=== PATIENT | male | born 1990 | race Caucasian/White ===

== ENCOUNTER 2025-05-01 08:38 | Emergency (ER) | payer BC, SELFPAY ==
[2025-05-01 08:41] VITALS: BP 166/97
--- NOTE | 2025-05-01 10:26 | ED.GENMED ---
History of Present Illness
General
Chief Complaint: Headache
Time Seen by Provider: 05/01/25 09:41
History of Present Illness
History of Present Illness:
35-year-old male with known history of prolactinoma presents to the emergency department for evaluation of intractable headaches for the past several days. Reports a constant low-level headache with frequent worsening of pain described as sharp,
rated to the left occiput to the forehead. Does not take patient's pain control. Discussed photophobia but denies vomiting, fever, or neck pain. No Diplopia.
Past History
Past History
ED Past Medical History: Other (pituitary adnemoma)
ED Past Surgical History: None
Social History
Tobacco: Non-smoker
Alcohol: None
Drug: None
Personal: Single
Review of Systems
Review of Systems
Allergies reviewed?: Yes
All Other Systems: ROS reviewed and negative except as documented in HPI and ROS
Phy Exam
Physical Exam
Physical Exam:
GEN: Well appearing, NAD, WDWN
HEENT: Oral mucosa moist, no scleral icterus, no nasal congestion. No palpable abnormalities or rashes to the posterior scalp patient pain increases with pressure along the greater occipital nerve distribution
Cardiac: Regular rate
Lung: No respiratory distress, no tachypnea
MSK: No gross deformity or injuries
Skin: Good color, no pallor or jaundice, no rashes
Neuro: AO x3; CN II-XII grossly intact. BUE strength 5/5 in all monaco, sensation intact and symmetric. BLE strength 5/5 in all monaco, sensation intact and symmetric
Psych: Calm, cooperative
Course
Orders/Labs/Results
Orders:
Orders
05/01/25 10:09
CT Head W/o Iv Contrast Urgent
Comment:
Reason For Exam: headache
Ketorolac [Toradol] 30 mg IM NOW STA
Vital Signs
Initial and Last Documented VS:
Initial Vital Signs
Temp Pulse Resp BP Pulse Ox
98.0 F 79 16 166/97 98
05/01/25 08:41 05/01/25 08:41 05/01/25 08:41 05/01/25 08:41 05/01/25 08:41
Last Documented Vital Signs
Temp Pulse Resp BP Pulse Ox
98.0 F 79 16 166/97 98
05/01/25 08:41 05/01/25 08:41 05/01/25 08:41 05/01/25 08:41 05/01/25 10:27
MDM/Problems Addressed
MDM/Problems Addressed:
CT was obtained to evaluate for intracranial mass which did not show any stable appearing pituitary adenoma, this is not likely related to his symptoms whatsoever. Suspect occipital neuralgia given frequent bouts of increased pain. He was given a
lesser occipital nerve block in addition to IM Toradol and reported improvement in symptoms. Stable for discharge home, recommend primary care follow-up as an outpatient
*Pulse Oximetry
SaO2: 98
Oxygen Mode of Delivery: Room air
Patient hypoxic: no
*Critical Care Note
Total Time (30-74mins, 75-104mins- exclusive of procedures): Not Applicable
ED Attending Note
-
Portions of this chart may have been created with voice recognition software.� Occasional wrong word or��sound alike� substitutions may have occurred due to the inherent limitations of voice recognition software.
Discharge Plan
Departure
Patient Disposition: Home (Routine Discharge)
Date of Disposition: 05/01/25
Time of Disposition: 11:37
Patient with high blood pressure during this ER visit?: No
Discharge Problem:
Occipital neuralgia
Instructions: Headache, Adult (DC)
Prescriptions:
New
xankjqbpds-qqcvgceybwvxd-cfnc [Fioricet] 50-300-40 mg capsule
1 cap PO Q8H PRN (Reason: Pain) Qty: 10 0RF
Referrals:
Yazmin Holliday DO [Family Provider, Family Practice]
Interventions
Interventions:
*Risk Screen - Suicide Last Done: 05/01/25 08:41
*General Assessment Last Done: 05/01/25 10:35
*Neglect/Abuse Screening Last Done: 05/01/25 08:41
*ED- Fall Risk Assessment Last Done: 05/01/25 10:35
*ED COVID-19 Vaccine History Last Done: 05/01/25 10:35
*ED Influenza Vaccine History Last Done: 05/01/25 10:35
*Nursing Disposition Last Done: 05/01/25 11:40
ED- Neurological Assessment Last Done: 05/01/25 10:35
Discharge Date and Time
Discharge Date/Time: 05/01/25 11:40
Print Language: PALAUAN
[2025-05-01] MEDS: TORADOL 30 MG IM (10:28)
== END 2025-05-01 11:40 | disposition home or self-care (01) ==
LOC: EMR 08:38
PROVIDERS: EMERGENCY PHYSICIAN Emergency Medicine; FAMILY PHYSICIAN Family Medicine
DX: M54.81 Occipital neuralgia (principal); Z86.018 Personal history of other benign neoplasm
CPT/HCPCS: 99284; 96372; 70450

== ENCOUNTER 2025-05-02 07:22 | Emergency (ER) | payer BC, SELFPAY ==
[2025-05-02] VITALS (8 sets, daily range): BP systolic 125–146; BP diastolic 74–100; BMI 33.2
--- NOTE | 2025-05-02 08:13 | ED.GENMED ---
History of Present Illness
<Lee Rocha MD, Resident - Last Filed: 05/02/25 09:12>
General
Chief Complaint: Headache
Source: patient
Time Seen by Provider: 05/02/25 07:33
History of Present Illness
History of Present Illness:
Patient is a 35-year-old male with PMH of pituitary tumor and ADHD who presented to the [facility] ED for headache. Patient presented to the [facility] ED for the same complaint yesterday. He underwent a CT head, which showed a known pituitary
mass. The patient's headache improved with the submental nerve block and IM Toradol. Patient was discharged with Fioricet. After discharge around 12 PM yesterday, the patient has had a relief until approximately 4 PM. Patient took Fioricet 3
times between 6 PM and 5 AM. The medication initially somewhat relieved the headache, but the headache substantially increased in severity around 3 AM this morning. Due to the severity and persistence of the headache, patient returned to the ED.
The headaches initially started last Monday (04/23) upon waking up in the morning. Headaches are intermittent, 9�10 dull intensity with intermittent '11/10' stabbing pain, and localized left side, particularly left occiput. They are interfering
with the patient's sleep, preventing him from sleeping more than 1-2 hours at a time. Patient takes cabergoline and hydrocortisone for his pituitary tumor. He has also used a testosterone cream for 2 years to increase his levels. Patient has had
several MRIs in the past related to his pituitary tumor, with a CT scan yesterday indicating it is decreased in size based on the patient's self-reported baseline 1 diagnosis of approximately 4.5 cm. Most recent MRI was over a year ago, when the
pituitary tumor was a little over 3 cm. No personal history of severe headaches. No recent trauma. Patient uses vapes. No cigarette smoking, alcohol use, or drug use. Patient occasionally sees some floaters with the headaches, otherwise no
visual changes. Patient has occasionally had poor balance and dropped items from his hands since the headaches started, but the patient thinks this is from the distracting pain rather than a primary balance issue or weakness. 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 No neck pain, dysarthria, sensation changes, N/V/D, fever, or chills.
Past History
<Lee Rocha MD, Resident - Last Filed: 05/02/25 09:12>
Past History
ED Past Medical History: Psychiatric (ADHD) and Other (pituitary adenoma)
ED Past Surgical History: None
Social History
Tobacco: Vaping
Alcohol: None
Drug: None
Personal: Single
Review of Systems
<Lee Rocha MD, Resident - Last Filed: 05/02/25 09:12>
Review of Systems
Constitutional: Reports fatigue (Related to decreased sleep due to headache) and sleep disturbance; Denies fever or chills
Respiratory: Denies trouble breathing
Cardiac: Denies chest pain
ABD/GI: Denies abdominal pain, nausea, vomiting or diarrhea
Musculoskeletal: Denies neck pain
Neurological: Reports headache; Denies weakness or numbness
Phy Exam
<Lee Rocha MD, Resident - Last Filed: 05/02/25 09:12>
Physical Exam
Physical Exam:
General: Moderate distress. Conversant, though this is difficult due to the headache.
Neuro: A&O x 3. Motor, sensory intact in all extremities. CN II through XII grossly intact. No pain with neck flexion, extension, or side flexion.
MSK: TTP left occiput. No cyanosis or edema.
Course
<Lee Rocha MD, Resident - Last Filed: 05/02/25 09:12>
Orders/Labs/Results
Orders:
Orders
05/02/25 08:12
Prochlorperazine [Compazine] 10 mg IV NOW STA
05/02/25 08:19
NEUROLOGY CONSULT Urgent
Consulting Provider: Christian Reyes
Was physician already notified: Yes
05/02/25 08:42
MRI Brain [MR Brain W/o & With Contrast] Urgent
Comment:
Reason For Exam: headache pit tumor, concern for apoplexy
OK for patient to be off Cardiac Monitoring for MRI: Yes
Recent pill cam endoscopy?: No
05/02/25 08:49
HYDROmorphone [Dilaudid] 1 mg IV NOW STA
05/02/25 08:50
CBC/With ESR Urgent
Comprehensive Metabolic Panel Urgent
Prolactin Routine
Comment: May add to blood in lab or draw as routine
05/02/25 11:00
HYDROmorphone [Dilaudid] 1 mg IV NOW STA
Ondansetron Injectable [Zofran] 4 mg IV NOW STA
Abnormal Lab Results
05/02/25
08:50
WBC 12.2 H 10^3/uL
(4.8-10.8)
Abs Immat Gran (auto) 0.1 H 10^3/uL
(0-0.05)
Absolute Neuts (auto) 8.3 H 10^3/uL
(1.4-6.5)
Absolute Monos (auto) 0.8 H 10^3/uL
(0.1-0.6)
Sodium 133 L mmol/L
(135-145)
Glucose 102 H mg/dl
(70-99)
Total Protein 8.3 H g/dl
(6.3-8.2)
05/02/25 08:50
05/02/25 08:50
Vital Signs
Initial and Last Documented VS:
Initial Vital Signs
Temp Pulse Resp BP Pulse Ox
98.3 F 76 16 125/74 96
05/02/25 07:27 05/02/25 07:27 05/02/25 07:27 05/02/25 07:27 05/02/25 07:27
Last Documented Vital Signs
Temp Pulse Resp BP Pulse Ox
98.3 F 72 20 146/100 96
05/02/25 07:27 05/02/25 08:48 05/02/25 08:48 05/02/25 09:00 05/02/25 09:30
<Zain Barney, DO - Last Filed: 05/02/25 12:45>
Orders/Labs/Results
Orders:
Orders
05/02/25 08:12
Prochlorperazine [Compazine] 10 mg IV NOW STA
05/02/25 08:19
NEUROLOGY CONSULT Urgent
Consulting Provider: Christian Reyes
Was physician already notified: Yes
05/02/25 08:42
MRI Brain [MR Brain W/o & With Contrast] Urgent
Comment:
Reason For Exam: headache pit tumor, concern for apoplexy
OK for patient to be off Cardiac Monitoring for MRI: Yes
Recent pill cam endoscopy?: No
05/02/25 08:49
HYDROmorphone [Dilaudid] 1 mg IV NOW STA
05/02/25 08:50
CBC/With ESR Urgent
Comprehensive Metabolic Panel Urgent
Prolactin Routine
Comment: May add to blood in lab or draw as routine
05/02/25 11:00
HYDROmorphone [Dilaudid] 1 mg IV NOW STA
Ondansetron Injectable [Zofran] 4 mg IV NOW STA
Abnormal Lab Results
05/02/25
08:50
WBC 12.2 H 10^3/uL
(4.8-10.8)
Abs Immat Gran (auto) 0.1 H 10^3/uL
(0-0.05)
Absolute Neuts (auto) 8.3 H 10^3/uL
(1.4-6.5)
Absolute Monos (auto) 0.8 H 10^3/uL
(0.1-0.6)
Sodium 133 L mmol/L
(135-145)
Glucose 102 H mg/dl
(70-99)
Total Protein 8.3 H g/dl
(6.3-8.2)
05/02/25 08:50
05/02/25 08:50
Vital Signs
Initial and Last Documented VS:
Initial Vital Signs
Temp Pulse Resp BP Pulse Ox
98.3 F 76 16 125/74 96
05/02/25 07:27 05/02/25 07:27 05/02/25 07:27 05/02/25 07:27 05/02/25 07:27
Last Documented Vital Signs
Temp Pulse Resp BP Pulse Ox
98.3 F 72 20 146/100 96
05/02/25 07:27 05/02/25 08:48 05/02/25 08:48 05/02/25 09:00 05/02/25 09:30
<Lee Rocha MD, Resident - Last Filed: 05/02/25 09:12>
MDM/Problems Addressed
Differential Diagnosis Includes:
Occipital neuralgia
Cluster headache
Tension headache
Stroke/TIA
Pituitary apoplexy
Subarachnoid hemorrhage
MDM/Problems Addressed:
Assessment: Patient is a 35-year-old male with PMH of pituitary tumor and ADHD who presents to the [facility] ED with intermittent, severe, persistent left occipital headaches without accompanying neurologic deficits, meningeal signs, or obvious
aura. Suspect occipital neuralgia or cluster headache, though we want to rule out sequelae of pituitary tumor (e.g., pituitary apoplexy) as a cause.
Plan:
MRI brain
Neuro consult
Prochlorperazine
CBC, CMP
Dilaudid for pain control
<Lee Rocha MD, Resident - Last Filed: 05/02/25 09:12>
*Pulse Oximetry
SaO2: 96
Oxygen Mode of Delivery: Room air
Patient hypoxic: no
*Critical Care Note
Total Time (30-74mins, 75-104mins- exclusive of procedures): Not Applicable
<Zain Barney DO - Last Filed: 05/02/25 12:45>
Update Note
Update Note:
12:40 PM update numerous conversations with neurology radiology patient underwent MRI, calcified pituitary possibly with blood
Neurology concern was for apoplexy, they arrange transportation to [facility] to see skull base surgery Dr. Mary Patton patient is in agreement
ED Attending Note
<Lee Rocha MD, Resident - Last Filed: 05/02/25 09:12>
-
Portions of this chart may have been created with voice recognition software.� Occasional wrong word or��sound alike� substitutions may have occurred due to the inherent limitations of voice recognition software.
Discharge Plan
Departure
Patient Disposition: Acute Care Hospital
Date of Disposition: 05/02/25
Time of Disposition: 12:44
Patient with high blood pressure during this ER visit?: No
Discharge Problem:
Headache
Prescriptions:
No Action
huggougyrs-ahkthxzvvwanh-hqra [Fioricet] 50-300-40 mg capsule
1 cap PO Q8H PRN (Reason: Pain) Qty: 10 0RF
Referrals:
UNKNOWN - PT DOES,NOT KNOW [Family Provider]
Hospital Transfer
Other hospital: [facility]
I certify that the patient requires transfer: Yes
Discussed case with accepting physician: Neurology discussed with Dr. Patton
Reason for transfer: higher level of care
Interventions
Interventions:
*Risk Screen - Suicide Last Done: 05/02/25 07:27
*General Assessment Last Done: 05/02/25 08:48
*Neglect/Abuse Screening Last Done: 05/02/25 07:27
*ED- Fall Risk Assessment Last Done: 05/02/25 08:48
*ED COVID-19 Vaccine History Last Done: 05/02/25 08:48
*ED Influenza Vaccine History Last Done: 05/02/25 08:48
ED- Neurological Assessment Last Done: 05/02/25 09:35
Discharge Date and Time
Print Language: ARMENIAN
--- NOTE | 2025-05-02 08:22 | CON.NEURO4 ---
Addendum entered and electronically signed by Christian Reyes MD 05/02/25 12:07:
Studies reviewed.
I have personally examined the patient. I reviewed and agree with the BROACH TROUBLE SHOOTER's Note.
My addenda:
Awake, alert, interactive. Mild distress due to discomfort.
Speech intact.
Follows 2-step requests w/o difficulty. No tremor.
Extra-ocular movements grossly intact.
Facial movements full and symmetric with the exception of minimal ptosis of the left eye. Hearing intact to normal conversational volume.
Normal UE movements bilaterally.
Neck: full ROM.
Chest: no dyspnea
Heart: no JVD
Ext: (-) Clubbing, (-) Cyanosis, (-) Edema
IMPRESSIONS/RECOMMENDATIONS:
Abrupt onset of progressively worsening headache in a patient with a large size pituitary adenoma
Differential diagnosis includes hemorrhagic conversion and pituitary apoplexy
Urgent MRI of the brain to determine if there is pituitary apoplexy
Consult neurosurgery to determine if surgical intervention is appropriate consider additional hydrocortisone based on patient's symptoms
Symptomatic therapy for the patient's head discomfort is appropriate
D/W patient
Will continue to follow patient.
Original Note:
Consultation - Neurology 4
-
CONSULTING PHYSICIAN: Christian Reyes MD
REFERRING PHYSICIAN: ER/Dr. Barney
DICTATED BY: GRACIELA Pappas
DATE/TIME OF REQUEST: 05/02/25
DATE/TIME OF CONSULTATION: 05/02/25
Reason for Consultation: Headache
History of Present Illness:
This is a 35-year-old right-handed male who has presented to the hospital with report of severe headache. Patient has a history of a prolactinoma diagnosed in 2021 after he developed pressure behind his nose. He is followed by endocrine at
[facility] as an outpatient and reports that the tumor has decreased in size substantially since it was discovered with pergolide, hydrocortisone, and testosterone supplements. Last week, he reports his neck started to feel stiff. Four days
ago on 04/28/25 he notes that the neck stiffness/pain worsened and was radiating up to hip left occipital region and across the left side of his head. The pain is constant throbbing with intermittent shooting pains. He denies any nausea, vomiting,
and phonophobia. He has very slight photophobia. Yesterday (05/01/25), the pain became severe at 0300 and he came to the ER for evaluation. CT head was negative for any acute abnormalities. He was given an occipital nerve block and reports that this
helped alleviate his pain for a few hours but the symptoms returned again last night. Overnight the pain became extremely severe prompting him to return to the ER. He denies any dizziness, speech/swallow difficulty, numbness, and weakness. He notes
intermittent blurry vision that resolves with blinking, he thinks this is not necessarily new. He reports that he has been extremely thirsty since his neck/headache started. He drinks a whole water bottle and then notes that he very quickly seems to
urinate it back out. Currently his throbbing pain is an 8-9/10 and his shooting pain is a 10/10. He has been unable to get ahold of anyone at his endocrine office.
Past Medical History: Pituitary prolactinoma, ADHD
Surgical History: Denies.
Family History: Reviewed and noncontributory.
Social History: Vapes. Denies alcohol and illicit drug use.
Allergies: No known allergies.
Home Medications: See below.
Review of Symptoms:
Patient denies any fever, chest pain, shortness of breath, GI or symptoms.
�Per the HPI.�All systems are reviewed negative except above.
Physical Exam:
The patient is afebrile, abdomen is nondistended, breathing is unlabored, skin is warm and dry, no edema.
Neurologic Examination:
The patient is awake, alert and oriented x 3. He is able to follow commands and answer questions appropriately. There is no aphasia or dysarthria. On cranial nerve assessment, pupils are 3 mm bilateral, round and reactive to light and
accommodation. Visual monaco are full. Extraocular movements are intact. There is trace ptosis left eye. Hearing is intact bilaterally to normal conversation volume. Tongue palate and uvula are midline. Sternocleidomastoid strengths are full
bilaterally. Motor strengths are 5/5 bilateral upper and lower extremities on medical research [place] scale. There is no drift or involuntary movement noted. Deep tendon reflexes are 2+ bilateral upper and lower extremities and Babinski is absent
bilaterally.There was no extinction noted on double simultaneous stimulation. Coordination is intact by finger to nose bilaterally.
Lab Results: See below.
Neuro Imaging:
1. CT Head 05/01/25: No acute intracranial abnormalities appreciated. Partially calcified lesion arising from the pituitary fossa and extending into the suprasellar region, measuring 2.4 x 1.3 x 1.0 cm, likely corresponding to the patient's known
pituitary tumor. Please correlate with prior imaging if available.
2. MRI brain 05/02/25: LARGE 3.1 cm BILOBED PITUITARY TUMOR in the SELLA TURCICA and SUPRASELLAR CISTERN containing calcification or/and intratumoral hemorrhage. No MRI evidence for interval increase in size of the mass since 01/19/2022. Severe mass
effect on the optic chiasm which appears unchanged.
Differentials for the patient's presentation include:
1. Large pituitary tumor, concern for pituitary apoplexy producing symptoms.
Patient has the following risk factors for their symptoms: Large pituitary tumor
Recommendations:
-Reviewed case with [facility] for further recommendations.
-Supportive care,
-Prochlorperazine 10mg IV q6hrs PRN headache.
Discussed patient care with: Dr. Reyes, Dr. Barney, the patient
Vital Signs and Labs
-
Vital Signs and Labs:
Vital Signs
Temp Pulse Resp BP Pulse Ox
98.3 F 72 20 130/96 99
05/02/25 07:27 05/02/25 08:48 05/02/25 08:48 05/02/25 08:48 05/02/25 08:48
Lab Results
05/02/25 08:50
05/02/25 08:50
Sodium 133 mmol/L (135-145) L 05/02/25 08:50
Potassium 4.3 mmol/L (3.5-5.1) 05/02/25 08:50
BUN 13 mg/dl (9-20) 05/02/25 08:50
Glucose 102 mg/dl (70-99) H 05/02/25 08:50
Calcium 9.4 mg/dl (8.4-10.2) 05/02/25 08:50
Medications
-
Home Medications
�Medication �Instructions �Recorded
hkdgsmujkh-afhmxwqoinnrv-ztffuhzs 1 cap PO Q8H PRN Pain #10 caps 05/01/25
50 mg-300 mg-40 mg capsule
(Fioricet)
[2025-05-02] MEDS: COMPAZINE 10 MG IV (08:48)
[2025-05-02] MEDS: DILAUDID 1 MG IV ×5 (08:56→17:17)
[2025-05-02 09:06] LABS: Hematocrit 45.1 % (39.0-52.0); Hemoglobin 15.1 g/dL (13.0-18.0); Mean Corp Hgb Conc. 33.5 g/dL (33.0-37.0); Mean Corpuscular Volume 85.4 fL (80.0-94.0); Nucleated Red Blood Cells % 0 % (-); Platelet Count 284 10^3/uL (130-400); Red Cell Dist. Width 12.8 % (11.5-14.5)
[2025-05-02 09:17] LABS: ALT (SGPT) 32 U/L (0-50); AST (SGOT) 22 U/L (17-59); Albumin 4.8 g/dl (3.5-5.0); Alkaline Phosphatase 61 U/L (38-126); Blood Urea Nitrogen 13 mg/dl (9-20); Calcium 9.4 mg/dl (8.4-10.2); Carbon Dioxide 24 mmol/L (22-30); Chloride 104 mmol/L (98-107); Glucose 102 mg/dl (70-99); Potassium 4.3 mmol/L (3.5-5.1); Sodium 133 mmol/L (135-145); Total Protein 8.3 g/dl (6.3-8.2); eGFR > 60.00
[2025-05-02] MEDS: ZOFRAN 4 MG IV (11:05)
== END 2025-05-02 18:06 | disposition short-term general hospital (02) ==
LOC: EMR 07:22
PROVIDERS: CONSULT PHYSICIAN Psychiatry & Neurology Neurology; EMERGENCY PHYSICIAN Emergency Medicine
DX: R51.9 Headache, unspecified (principal); D35.2 Benign neoplasm of pituitary gland; F90.9 Attention-deficit hyperactivity disorder, unspecified type; F17.290 Nicotine dependence, other tobacco product, uncomplicated; Z86.018 Personal history of other benign neoplasm
CPT/HCPCS: 99284; 70553; 80053; 84146; 85025; 85652; A9575

== ENCOUNTER → 2025-05-12 08:08 | Outpatient (REF) | payer BC, SELFPAY ==
[2025-05-12 10:04] LABS: Blood Urea Nitrogen 11 mg/dl (9-20); Calcium 9.5 mg/dl (8.4-10.2); Carbon Dioxide 31 mmol/L (22-30); Chloride 94 mmol/L (98-107); Glucose 94 mg/dl (70-99); Potassium 4.3 mmol/L (3.5-5.1); Sodium 134 mmol/L (135-145); eGFR > 60.00
== END ==
LOC: REG 08:08
PROVIDERS: ATTENDING PHYSICIAN Internal Medicine Endocrinology, Diabetes & Metabolism
DX: E23.6 Other disorders of pituitary gland (principal)
CPT/HCPCS: 36415; 80048; 83935; 84146